=== PATIENT | female | born 1995 | race Caucasian/White ===

== ENCOUNTER 2017-02-16 23:16 | Emergency (ER) | payer OTHER ==
[~2017-02-16] VITALS: Ht 162.6 cm; Wt 99.8 kg
[~2017-02-16 23:16] MED LIST: [UNRECOGNIZED DRUG - CODE] PO
[2017-02-16 23:21] VITALS: BP 122/76
--- NOTE | 2017-02-17 01:31 | NUR ---
PATIENT LEFT WITHOUT BEING SEEN BY DR. GREENFIELD. NO FURTHER CARE PROVIDED FOR PATIENT.
== END 2017-02-17 01:31 | disposition left against medical advice (07) ==
LOC: MED 23:16
DX: R07.89 Other chest pain (principal); Z53.21 Procedure and treatment not carried out due to patient leaving prior to being seen by health care provider

== ENCOUNTER 2018-06-03 14:10 | Emergency (ER) | payer OTHER ==
[~2018-06-03] VITALS: Ht 162.6 cm; Wt 108.4 kg
[2018-06-03 14:14] VITALS: BP 116/72
--- NOTE | 2018-06-03 14:15 | NUR ---
c/o throat pain upon swallowing , fever x yesterday full clear speech, no drooling or muffled voice noted at this time hx---denies rx----none
--- NOTE | 2018-06-03 14:18 | NUR ---
Patient being evaluated by physician at bedside.
[2018-06-03] MEDS ORDERED: IBUPROFEN 600 MG TAB PO ONE (14:25)
--- NOTE | 2018-06-03 14:25 | NUR ---
Note alicia in EDM - 06/03/18 at 1440 by AMBER 23yo f w/c/o throat pain upon swallowing , fever x yesterday full clear speech, no drooling or muffled voice noted at this time, pt denies sob, cp , abd pain. er made aware, will continue to monitor hx---denies rx----none
[2018-06-03 14:37] VITALS: BP 118/76
--- NOTE | 2018-06-03 14:37 | NUR ---
Patient discharged with v/s stable. Written and verbal after care instructions given and explained. Patient alert, oriented and verbalized understanding of instructions. Ambulatory with steady gait. All questions addressed prior to discharge. ID band removed. Patient advised to follow up with PMD. Rx of PREDNISONE AND MOTRIN given. Patient educated on indication of medication including possible reaction and side effects. Opportunity to ask questions provided and answered.
== END 2018-06-03 14:37 | disposition home or self-care (01) ==
LOC: MED 14:10
DX: J02.9 Acute pharyngitis, unspecified (principal)
CPT/HCPCS: 99283

== ENCOUNTER 2018-10-11 11:01 | Emergency (ER) | payer SELFPAY ==
[~2018-10-11] VITALS: Ht 162.6 cm; Wt 103.9 kg
[2018-10-11 11:09] VITALS: BP 124/73
--- NOTE | 2018-10-11 11:10 | NUR ---
PT AMBULATES TO BED 2
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
[2018-10-11] MEDS ORDERED: LEVOFLOXACIN 500 MG TAB PO ONE (11:45)
[2018-10-11] MEDS ORDERED: KETOROLAC 60 MG/2 ML VIAL IM ONE (11:45)
[2018-10-11 13:27] LABS: APPEARANCE,URINE HAZY (CLEAR); BILIRUBIN,URINE 1+ (NEGATIVE); BLOOD, URINE TRACE-I (NEGATIVE); COLOR,URINE ORANGE (YELLOW); LEUKOCYTE ESTERASE ,URINE 2+ (NEGATIVE); NITRITE, URINE POSITIVE (NEGATIVE); PH,URINE 7.5 (5.0-9.0); UGLUCOSE 1+ (NEGATIVE)
--- NOTE | 2018-10-11 13:31 | NUR ---
PATIENT RESTING AT THIS TIME. NO SIGNS OF DISTRESS.
[2018-10-11 13:47] LABS: RBC,URINE 0-5 /HPF (0-5); WBC,URINE 20-60 /HPF (0-5)
[2018-10-11 13:49] VITALS: BP 119/82
--- NOTE | 2018-10-11 13:49 | NUR ---
Patient discharged with v/s stable. Written and verbal after care instructions given and explained. Patient alert, oriented and verbalized understanding of instructions. Ambulatory with steady gait. All questions addressed prior to discharge. ID band removed. Patient advised to follow up with PMD. Rx of LEVAQUIN 500MG AND FIORICET [id number] given. Patient educated on indication of medication including possible reaction and side effects. Opportunity to ask questions provided and answered.
== END 2018-10-11 13:49 | disposition home or self-care (01) ==
LOC: MED 11:01
DX: N30.90 Cystitis, unspecified without hematuria (principal)
CPT/HCPCS: 81001; 81025; 87086; 96372; 99283; J1885

== ENCOUNTER 2019-05-18 11:05 | Emergency (ER) | payer OTHER ==
[~2019-05-18] VITALS: Ht 162.6 cm; Wt 111.1 kg
[2019-05-18 11:14] VITALS: BP 111/63
--- NOTE | 2019-05-18 11:18 | NUR ---
Pt taken to bed 2.
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
--- NOTE | 2019-05-18 11:40 | NUR ---
Dr. Dunn evaluating patient at bedside.
[2019-05-18] MEDS ORDERED: LIDOCAINE MPF 1% 5 ML ONE ×2 (11:49→12:01)
[2019-05-18] MEDS ORDERED: LIDOCAINE MPF 1% 10 MG/ML VIAL INJ ONE (12:00)
--- NOTE | 2019-05-18 12:48 | NUR ---
discharge teaching given by dr. izaguirre.
[2019-05-18 12:55] VITALS: BP 111/63
== END 2019-05-18 12:48 | disposition home or self-care (01) ==
LOC: MED 11:05
DX: S01.112A Laceration without foreign body of left eyelid and periocular area, initial encounter (principal); Y04.0XXA Assault by unarmed brawl or fight, initial encounter; Y93.89 Activity, other specified; Y92.89 Other specified places as the place of occurrence of the external cause; Y99.8 Other external cause status
CPT/HCPCS: 12013; 90471; 90715; 99283; J2001

== ENCOUNTER 2020-03-23 02:25 | Emergency (ER) | payer OTHER ==
[~2020-03-23] VITALS: Ht 162.6 cm; Wt 117.9 kg
[2020-03-23 02:38] VITALS: BP 147/103
--- NOTE | 2020-03-23 02:38 | NUR ---
PT AMBULATED TO BED #5
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
--- NOTE | 2020-03-23 02:59 | NUR ---
Dr. Wang examining patient.
[2020-03-23] MEDS ORDERED: KETOROLAC 60 MG/2 ML VIAL IM ONE (03:05)
[2020-03-23 03:36] VITALS: BP 147/103
== END 2020-03-23 03:37 | disposition home or self-care (01) ==
LOC: MED 02:25
DX: M25.512 Pain in left shoulder (principal); R06.02 Shortness of breath; R11.0 Nausea; Z98.890 Other specified postprocedural states
CPT/HCPCS: 81002; 81025; 96372; 99283; J1885